=== PATIENT | female | born 1980 | race African-American/Black ===

== ENCOUNTER 2019-01-20 10:08 | Emergency (ER) | payer MEDICAID ==
[~2019-01-20] VITALS: Ht 167.6 cm; Wt 106.0 kg
[2019-01-20] MEDS ORDERED: IBUPROFEN 600MG TABLET PO ONE (12:30)
[2019-01-20 12:31] VITALS: BP 139/97
== END 2019-01-20 12:36 | disposition home or self-care (01) ==
LOC: ER 10:24
DX: L03.211 Cellulitis of face (principal); F17.210 Nicotine dependence, cigarettes, uncomplicated
CPT/HCPCS: 99283